=== PATIENT | male | born 1970 | race Caucasian/White ===

== ENCOUNTER 2021-04-15 20:21 | Emergency (ER) | payer BC, MEDICAID, OTHER ==
[2021-04-15] MEDS ORDERED: Sodium Chloride 0.9% 10 ML Syringe ONE (20:30)
[2021-04-15] MEDS ORDERED: fentaNYL 50 MCG/ML SDV ONE ×2 (20:30)
[2021-04-15] MEDS: LORazepam 2 MG/ML SDV IVPUSH ONE ×2 (20:33→20:41)
[2021-04-15] MEDS: fentaNYL 100 MCG/2 ML SDV IVPUSH ONE (20:36)
[2021-04-15 21:05] LABS: O2 DELIVERY DEVICE ROOM AIR
[2021-04-15 21:06] LABS: BASE EXCESS VENOUS -3 mmol/L ((-2)-3); BICARBONATE,VENOUS 22 mmol/L (23-28); O2 SATURATION VENOUS 63 %; PCO2 VENOUS 37 mmHG (41-51); PH,VENOUS 7.38 (7.31-7.41); PO2 VENOUS 33 mmHG
[2021-04-15 21:28] LABS: CHLORIDE,CL 107 mmol/L (98-107); SODIUM,NA 143 mmol/L (136-145)
[2021-04-15 21:30] LABS: ACETAMINOPHEN < 10.0 ug/mL (10.0-30.0)
[2021-04-15] MEDS: Lactated Ringers 1,000 ML IV ONE (21:30)
[2021-04-15] MEDS: Etomidate 2 MG/ML 10 ML SDV IVPUSH ONE (21:40)
[2021-04-15] MEDS: Succinylcholine 200 MG/10 ML MDV IV STA (21:42)
[2021-04-15] MEDS: Propofol 200 MG/20 ML SDV IVPUSH ONE ×3 (21:46→22:27)
[2021-04-15] MEDS: Lactated Ringers 1,000 ML IV SCH (22:31)
[2021-04-15 22:50] LABS: PCO2 ARTERIAL,POC 40 mmHg (35-48)
--- NOTE | 2021-04-15 22:52 | EDM.PDOC ---
ED HPI GENERAL MEDICAL PROBLEM - General Chief Complaint: General Stated Complaint: unresponsive Time Seen by Provider: 04/15/21 20:21 Source of Information: Reports: EMS, Family History Limitations: Reports: Altered Mental Status - History of Present Illness INITIAL COMMENTS - FREE TEXT/NARRATIVE: Patient comes emergency department today by ambulance from his home with concern s of an unresponsive episode. HPI is primarily obtained from the family as well as EMS. 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 He had fallen a couple of days ago in his boat and he sustained multiple bruises to his lower extremities as well as his abdomen and his right shoulder. He was evaluated at the [facility] and found no fractures or other pathology. He was seen at [facility] yesterday for routine follow-up and radiation to his brain for his metastatic melanoma. At approximately 6:00 this evening patient was at home with his mother and he stated that he was not feeling well and he started to get little shaky and he did not want anyone to be with him. His mother left. She tried to call him about half an hour later he did not answer. She had a family member go over to the house and check on him and he was found unresponsive. His family relates that over the past couple of days he has made some statements that he does not want to do treatment anymore and that he just wants to . He has never made any suicidal statements to them. Upon EMS arrival the patient was obtunded snoring respirations. An oral pharyngeal airway was placed. They were unable to obtain an IV. He was given intranasal Narcan prior to arrival in the emergency department. Rest of the HPI is unobtainable. Due to the patient's unresponsive state upon arrival. - Related Data Allergies Allergy/AdvReac Type Severity Reaction Status Date / Time Penicillins Allergy Rash Verified 04/15/21 20:29 Home Meds: Home Meds Omeprazole 20 mg PO DAILY 01/15/15 [History] Carboxymethylcellulose Sodium [Refresh Tears] 1 drop EYEBOTH Q4H PRN 11/13/20 [History] Diphenoxylate HCl/Atropine [Diphenoxylate-Atrop 2.5-0.025] 2 each PO QID 8 Days #30 tablet 11/13/20 [Rx] Ondansetron [Zofran ODT] 4 mg PO Q6H PRN 11/13/20 [History] Prednisolone Acetate/Pf [Prednisolone Acet 1% Eye Drop] 1 drop EYEBOTH QID 11/13/20 [History] Propylene Glycol/Peg 400 [Systane Ultra 0.4-0.3% Eye Drp] 1 drop EYEBOTH Q4H PRN 11/13/20 [History] Sertraline [Zoloft] 100 mg PO DAILY 11/13/20 [History] Past Medical History - Past Health History Medical/Surgical History: Denies Medical/Surgical History HEENT History: Reports: Other (See Below) (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) Cardiovascular History: Reports: None Respiratory History: Reports: None, Other (See Below) Gastrointestinal History: Reports: Irritable Bowel Syndrome, Other (See Below) (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 2. NODE BIOPSY (05/22/2018). 3. MASS EXCISION (09/10/2019). 4. SHOULDER SURGERY. 5. US BIOPSY AXILLARY RT (08/13/2019) Social & Family History - Family History Family Medical History: No Pertinent Family History ED ROS GENERAL - Review of Systems Review Of Systems: Unable To Obtain Reason Not Obtained: Unresponsive ED EXAM, GENERAL - Physical Exam Exam: See Below Free Text/Narrative:: Upon initial exam the patient is unresponsive. He has regular respirations with the oral pharyngeal airway in place. He is in no distress. He has no spontaneous movements. He does have regular respirations. Exam Limited By: Altered Mental Status General Appearance: Obtunded Eye Exam: Bilateral Eye: Normal Inspection, PERRL Ears: Normal External Exam Nose: Normal Inspection Throat/Mouth: Normal Inspection Head: Atraumatic, Normocephalic Neck: Normal Inspection, Other (There are multiple small masses noted on palpation that or not lymph nodes in the neck.) Respiratory/Chest: No Respiratory Distress, Lungs Clear, Normal Breath Sounds, No Accessory Muscle Use Cardiovascular: Normal Peripheral Pulses, Regular Rate, Rhythm Peripheral Pulses: 0: Dorsalis Pedis (R), 2+: Radial (L), Radial (R), Posterior Tibial (L), Posterior Tibial (R), Dorsalis Pedis (L) GI/Abdominal: Normal Bowel Sounds, Soft, Non-Tender, Other (There is multiple sites of bruising all over the abdomen. Abdomen is soft not distended.) (Male) Exam: Deferred Rectal (Males) Exam: Deferred Back Exam: Normal Inspection Extremities: Normal Capillary Refill. No: Normal Inspection (There is no overt bony deformity to any of his upper or lower extremities. He has quite extensive bruising on the anterior aspect of bilateral shins. CMS intact appropriately.) Neurological: Unresponsive Skin Exam: Warm, Dry, Intact, Normal Color ED GENERAL MEDICAL PROCEDURES - Endotracheal Intubation Time of Intubation: 21:35 ET Intubation Indication: Airway Protection Preparation: Suction, Balloon Tested, BVM Set Up, Difficult Airway Equip Pre-Oxygenation: 100% FiO2 Anesthesia Meds: Etomidate, Fentanyl, Succinylcholine Placement: Orotracheal, Cuffed, Uncomplicated Placement Cords Visualized: Yes, Grade 1 ETT Size In mm: 8.0 Number of Attempts: 1 Confirmed By: CO2 Indicator, Bilateral Breath Sounds, Chest Xray (Initially at the sanchez at 27 cm, pulled back 2 cm. ) Tube Secured By: By Provider Endotracheal Intubation Comment: Intubated easily with direct visualization of the Et tube through the cords. No epigastric sounds. Lung sounds bilaterally. Connecteced to auto vent. Course - Vital Signs Last Recorded V/S: Last Vital Signs Temp Pulse 95 04/15/21 20:25 Resp 16 04/15/21 20:25 BP 112/69 04/15/21 20:25 Pulse Ox 98 04/15/21 20:25 - Orders/Labs/Meds Orders: Active Orders 24 hr Category Date Time Status EKG Documentation Completion [RC] ASDIRECTED Care 04/15/21 20:49 Active Peripheral IV Care [RC] . DIRECTED Care 04/15/21 20:49 Active Chest 1V Frontal [CR] Stat Exams 04/15/21 22:06 Taken Head wo Cont [CT] Stat Exams 04/15/21 20:48 Taken SALICYLATE [REF] Stat Lab 04/15/21 21:00 Received Sodium Chloride 0.9% [Saline Flush] Med 04/15/21 20:49 Active 10 ml FLUSH ASDIRECTED PRN Peripheral IV Insertion Adult [OM.PC] Stat Oth 04/15/21 20:48 Ordered Medication Orders Sodium Chloride (Sodium Chloride 0.9% 10 Ml Syringe) 10 ml FLUSH ASDIRECTED PRN PRN Reason: Keep Vein Open Labs: Laboratory Tests 04/15/21 04/15/21 04/15/21 Range/Units 21:00 21:00 21:00 WBC 21.7 H (4.0-10.2) K/uL RBC 4.39 (4.33-5.41) M/uL Hgb 14.0 (13.1-16.8) g/dL Hct 41.7 (39.0-49.0) % MCV 95.0 (84.0-98.0) fL MCH 31.9 (28.2-33.3) pg MCHC 33.6 (31.7-36.0) g/dL RDW 12.8 (11.2-14.1) % Plt Count 217 (150-350) K/uL Neut % (Auto) 94.0 H (45.0-80.0) % Lymph % (Auto) 2.3 L (10.0-50.0) % Harvey % (Auto) 3.6 (2.0-14.0) % Eos % (Auto) 0.0 (0.0-5.0) % Baso % (Auto) 0.1 (0.0-2.0) % Neut # (Auto) 20.36 H (1.40-7.00) K/uL Lymph # (Auto) 0.50 (0.50-3.50) K/uL Harvey # (Auto) 0.78 (0.00-1.00) K/uL Eos # (Auto) 0.00 (0.00-0.50) K/uL Baso # (Auto) 0.02 (0.00-0.20) K/uL POC ABG pH (7.35-7.45) pH POC ABG pCO2 (35-48) mmHg POC ABG pO2 (83-108) mmHg POC ABG HCO3 (22-26) mmol/L POC ABG Total CO2 (23-27) mmol/L POC ABG O2 Sat (95-98) % POC ABG Base Excess (-2-3) mmol/L VBG pH 7.38 (7.31-7.41) VBG pCO2 37 L (41-51) mmHG VBG pO2 33 mmHG VBG HCO3 22 L (23-28) mmol/L VBG Total CO2 23 mmol/L VBG O2 Saturation 63 % VBG Base Excess -3 L ((-2)-3) mmol/L O2 Delivery Device Room air Oxygen Flow Rate Sodium 143 (136-145) mmol/L Potassium 4.4 (3.5-5.1) mmol/L Chloride 107 (98-107) mmol/L Carbon Dioxide 21.3 (21.0-32.0) mmol/L BUN 37 H (7-18) mg/dL Creatinine 1.43 H (0.51-1.17) mg/dL Est Cr Clr Drug Dosing TNP Estimated GFR (MDRD) 53 mL/min Glucose 164 H (70-99) mg/dL Calcium 8.5 (8.5-10.1) mg/dL Magnesium 2.7 H (1.8-2.4) mg/dL Total Bilirubin 0.4 (0.2-1.0) mg/dL AST 18 (15-37) U/L ALT 47 (12-78) U/L Alkaline Phosphatase 61 (46-116) IU/L Ammonia (11-32) umol/L C-Reactive Protein < 0.2 (<=0.9) mg/dL Total Protein 5.8 L (6.4-8.2) g/dL Albumin 3.1 L (3.4-5.0) g/dL Specimen Type Urine Color Urine Appearance Urine pH (5.0-9.0) Ur Specific [place] (1.005-1.030) Urine Protein (NEGATIVE) mg/dL Urine Glucose (UA) (NEGATIVE) mg/dL Urine Ketones (NEGATIVE) mg/dL Urine Occult Blood (NEGATIVE) Urine Nitrite (NEGATIVE) Urine Bilirubin (NEGATIVE) Urine Urobilinogen (0.2-1.0) E.U./dL Ur Leukocyte Esterase (NEGATIVE) Urine RBC /HPF Urine WBC /HPF Ur Epithelial Cells /LPF Urine Bacteria (NONE TO FEW) /HPF Urine Mucus (NEGATIVE) /LPF Urine Opiates Screen (NEGATIVE) Ur Buprenorphine Scrn (NEGATIVE) Ur Oxycodone Screen (NEGATIVE) Ur EDDP (Meth Metab) (NEGATIVE) Acetaminophen < 10.0 L (10.0-30.0) ug/mL Ur Barbiturates Screen (NEGATIVE) Ur Tricyclics Screen (NEGATIVE) Ur Amphetamine Screen (NEGATIVE) U Methamphetamines Scrn (NEGATIVE) Urine MDMA Screen (NEGATIVE) U Benzodiazepines Scrn (NEGATIVE) U Cocaine Metab Screen (NEGATIVE) U Marijuana (THC) Screen (NEGATIVE) Ethyl Alcohol 0.001 (0.000-0.080) g/dL 04/15/21 04/15/21 04/15/21 Range/Units 21:00 22:40 22:50 WBC (4.0-10.2) K/uL RBC (4.33-5.41) M/uL Hgb (13.1-16.8) g/dL Hct (39.0-49.0) % MCV (84.0-98.0) fL MCH (28.2-33.3) pg MCHC (31.7-36.0) g/dL RDW (11.2-14.1) % Plt Count (150-350) K/uL Neut % (Auto) (45.0-80.0) % Lymph % (Auto) (10.0-50.0) % Harvey % (Auto) (2.0-14.0) % Eos % (Auto) (0.0-5.0) % Baso % (Auto) (0.0-2.0) % Neut # (Auto) (1.40-7.00) K/uL Lymph # (Auto) (0.50-3.50) K/uL Harvey # (Auto) (0.00-1.00) K/uL Eos # (Auto) (0.00-0.50) K/uL Baso # (Auto) (0.00-0.20) K/uL POC ABG pH 7.5 H (7.35-7.45) pH POC ABG pCO2 40 (35-48) mmHg POC ABG pO2 414 H (83-108) mmHg POC ABG HCO3 28.1 H (22-26) mmol/L POC ABG Total CO2 28.4 H (23-27) mmol/L POC ABG O2 Sat 100.0 H (95-98) % POC ABG Base Excess 4 H (-2-3) mmol/L VBG pH (7.31-7.41) VBG pCO2 (41-51) mmHG VBG pO2 mmHG VBG HCO3 (23-28) mmol/L VBG Total CO2 mmol/L VBG O2 Saturation % VBG Base Excess ((-2)-3) mmol/L O2 Delivery Device Vent mask Oxygen Flow Rate 15 Sodium (136-145) mmol/L Potassium (3.5-5.1) mmol/L Chloride (98-107) mmol/L Carbon Dioxide (21.0-32.0) mmol/L BUN (7-18) mg/dL Creatinine (0.51-1.17) mg/dL Est Cr Clr Drug Dosing Estimated GFR (MDRD) mL/min Glucose (70-99) mg/dL Calcium (8.5-10.1) mg/dL Magnesium (1.8-2.4) mg/dL Total Bilirubin (0.2-1.0) mg/dL AST (15-37) U/L ALT (12-78) U/L Alkaline Phosphatase (46-116) IU/L Ammonia < 10 L (11-32) umol/L C-Reactive Protein (<=0.9) mg/dL Total Protein (6.4-8.2) g/dL Albumin (3.4-5.0) g/dL Specimen Type Urine Color Urine Appearance Urine pH (5.0-9.0) Ur Specific [place] (1.005-1.030) Urine Protein (NEGATIVE) mg/dL Urine Glucose (UA) (NEGATIVE) mg/dL Urine Ketones (NEGATIVE) mg/dL Urine Occult Blood (NEGATIVE) Urine Nitrite (NEGATIVE) Urine Bilirubin (NEGATIVE) Urine Urobilinogen (0.2-1.0) E.U./dL Ur Leukocyte Esterase (NEGATIVE) Urine RBC /HPF Urine WBC /HPF Ur Epithelial Cells /LPF Urine Bacteria (NONE TO FEW) /HPF Urine Mucus (NEGATIVE) /LPF Urine Opiates Screen Positive H (NEGATIVE) Ur Buprenorphine Scrn Negative (NEGATIVE) Ur Oxycodone Screen Positive H (NEGATIVE) Ur EDDP (Meth Metab) Negative (NEGATIVE) Acetaminophen (10.0-30.0) ug/mL Ur Barbiturates Screen Negative (NEGATIVE) Ur Tricyclics Screen Negative (NEGATIVE) Ur Amphetamine Screen Negative (NEGATIVE) U Methamphetamines Scrn Negative (NEGATIVE) Urine MDMA Screen Negative (NEGATIVE) U Benzodiazepines Scrn Positive H (NEGATIVE) U Cocaine Metab Screen Negative (NEGATIVE) U Marijuana (THC) Screen Negative (NEGATIVE) Ethyl Alcohol (0.000-0.080) g/dL 04/15/21 Range/Units 23:00 WBC (4.0-10.2) K/uL RBC (4.33-5.41) M/uL Hgb (13.1-16.8) g/dL Hct (39.0-49.0) % MCV (84.0-98.0) fL MCH (28.2-33.3) pg MCHC (31.7-36.0) g/dL RDW (11.2-14.1) % Plt Count (150-350) K/uL Neut % (Auto) (45.0-80.0) % Lymph % (Auto) (10.0-50.0) % Harvey % (Auto) (2.0-14.0) % Eos % (Auto) (0.0-5.0) % Baso % (Auto) (0.0-2.0) % Neut # (Auto) (1.40-7.00) K/uL Lymph # (Auto) (0.50-3.50) K/uL Harvey # (Auto) (0.00-1.00) K/uL Eos # (Auto) (0.00-0.50) K/uL Baso # (Auto) (0.00-0.20) K/uL POC ABG pH (7.35-7.45) pH POC ABG pCO2 (35-48) mmHg POC ABG pO2 (83-108) mmHg POC ABG HCO3 (22-26) mmol/L POC ABG Total CO2 (23-27) mmol/L POC ABG O2 Sat (95-98) % POC ABG Base Excess (-2-3) mmol/L VBG pH (7.31-7.41) VBG pCO2 (41-51) mmHG VBG pO2 mmHG VBG HCO3 (23-28) mmol/L VBG Total CO2 mmol/L VBG O2 Saturation % VBG Base Excess ((-2)-3) mmol/L O2 Delivery Device Oxygen Flow Rate Sodium (136-145) mmol/L Potassium (3.5-5.1) mmol/L Chloride (98-107) mmol/L Carbon Dioxide (21.0-32.0) mmol/L BUN (7-18) mg/dL Creatinine (0.51-1.17) mg/dL Est Cr Clr Drug Dosing Estimated GFR (MDRD) mL/min Glucose (70-99) mg/dL Calcium (8.5-10.1) mg/dL Magnesium (1.8-2.4) mg/dL Total Bilirubin (0.2-1.0) mg/dL AST (15-37) U/L ALT (12-78) U/L Alkaline Phosphatase (46-116) IU/L Ammonia (11-32) umol/L C-Reactive Protein (<=0.9) mg/dL Total Protein (6.4-8.2) g/dL Albumin (3.4-5.0) g/dL Specimen Type Urinvoid Urine Color Yellow Urine Appearance Clear Urine pH 5.5 (5.0-9.0) Ur Specific [place] >= 1.030 (1.005-1.030) Urine Protein 100 H (NEGATIVE) mg/dL Urine Glucose (UA) Negative (NEGATIVE) mg/dL Urine Ketones Negative (NEGATIVE) mg/dL Urine Occult Blood Small H (NEGATIVE) Urine Nitrite Negative (NEGATIVE) Urine Bilirubin Negative (NEGATIVE) Urine Urobilinogen 0.2 (0.2-1.0) E.U./dL Ur Leukocyte Esterase Negative (NEGATIVE) Urine RBC 5-10 H /HPF Urine WBC 0-5 /HPF Ur Epithelial Cells Few /LPF Urine Bacteria Few (NONE TO FEW) /HPF Urine Mucus Few H (NEGATIVE) /LPF Urine Opiates Screen (NEGATIVE) Ur Buprenorphine Scrn (NEGATIVE) Ur Oxycodone Screen (NEGATIVE) Ur EDDP (Meth Metab) (NEGATIVE) Acetaminophen (10.0-30.0) ug/mL Ur Barbiturates Screen (NEGATIVE) Ur Tricyclics Screen (NEGATIVE) Ur Amphetamine Screen (NEGATIVE) U Methamphetamines Scrn (NEGATIVE) Urine MDMA Screen (NEGATIVE) U Benzodiazepines Scrn (NEGATIVE) U Cocaine Metab Screen (NEGATIVE) U Marijuana (THC) Screen (NEGATIVE) Ethyl Alcohol (0.000-0.080) g/dL Meds: Medications Generic Name Dose Route Start Last Admin Trade Name Freq PRN Reason Stop Dose Admin Sodium Chloride 10 ml 04/15/21 20:49 Sodium Chloride 0.9% 10 Ml Syringe FLUSH ASDIRECTED PRN Keep Vein Open Discontinued Medications Generic Name Dose Route Start Last Admin Trade Name Freq PRN Reason Stop Dose Admin Etomidate Confirm 04/15/21 21:14 Etomidate 2 Mg/Ml 10 Ml Sdv Administered 04/15/21 21:15 Dose 20 mg .ROUTE .STK-MED ONE Etomidate 20 mg 04/15/21 21:30 Etomidate 2 Mg/Ml 10 Ml Sdv IVPUSH 04/15/21 21:31 ONETIME ONE Fentanyl Confirm 04/15/21 20:35 Fentanyl 100 Mcg/2 Ml Sdv Administered 04/15/21 20:36 Dose 100 mcg .ROUTE .STK-MED ONE Fentanyl 100 mcg 04/15/21 20:50 Fentanyl 100 Mcg/2 Ml Sdv IVPUSH 04/15/21 20:51 ONETIME ONE Fentanyl 50 mcg 04/15/21 20:53 Fentanyl 50 Mcg/Ml Sdv IVPUSH 04/15/21 20:54 ONETIME ONE Fentanyl Confirm 04/15/21 20:54 Fentanyl 100 Mcg/2 Ml Sdv Administered 04/15/21 20:55 Dose 100 mcg .ROUTE .STK-MED ONE Fentanyl 50 mcg 04/15/21 22:07 Fentanyl 50 Mcg/Ml Sdv IVPUSH 04/15/21 22:08 ONETIME ONE Fentanyl 50 mcg 04/15/21 22:22 Fentanyl 50 Mcg/Ml Sdv IVPUSH 04/15/21 22:23 ONETIME ONE Lactated Ringer's 1,000 mls @ 1,000 mls/hr 04/15/21 20:53 Ringers, Lactated IV 04/15/21 21:52 .BOLUS ONE Levetiracetam 1,000 mg/ Sodium 110 mls @ 400 mls/hr 04/15/21 21:06 Chloride IV 04/15/21 21:22 NOW STA Lorazepam Confirm 04/15/21 20:33 Lorazepam 2 Mg/Ml Sdv Administered 04/15/21 20:34 Dose 2 mg .ROUTE .STK-MED ONE Lorazepam Confirm 04/15/21 20:41 Lorazepam 2 Mg/Ml Sdv Administered 04/15/21 20:42 Dose 2 mg .ROUTE .STK-MED ONE Lorazepam 2 mg 04/15/21 20:50 Lorazepam 2 Mg/Ml Sdv IVPUSH 04/15/21 20:51 ONETIME ONE Lorazepam 2 mg 04/15/21 20:50 Lorazepam 2 Mg/Ml Sdv IVPUSH 04/15/21 20:51 ONETIME ONE Propofol Confirm 04/15/21 21:35 Propofol 200 Mg/20 Ml Sdv Administered 04/15/21 21:36 Dose 200 mg .ROUTE .STK-MED ONE Propofol 100 mg 04/15/21 22:06 Propofol 200 Mg/20 Ml Sdv IVPUSH 04/15/21 22:07 ONETIME ONE Propofol Confirm 04/15/21 22:12 Propofol 200 Mg/20 Ml Sdv Administered 04/15/21 22:13 Dose 200 mg .ROUTE .STK-MED ONE Propofol Confirm 04/15/21 22:13 Propofol 200 Mg/20 Ml Sdv Administered 04/15/21 22:14 Dose 200 mg .ROUTE .STK-MED ONE Propofol 200 mg 04/15/21 22:21 Propofol 200 Mg/20 Ml Sdv IVPUSH 04/15/21 22:22 ONETIME ONE Rocuronium Mora Confirm 04/15/21 20:28 Rocuronium 100 Mg/10 Ml Mdv Administered 04/15/21 20:29 Dose 100 mg .ROUTE .STK-MED ONE Succinylcholine Chloride Confirm 04/15/21 20:28 Succinylcholine 200 Mg/10 Ml Mdv Administered 04/15/21 20:29 Dose 200 mg .ROUTE .STK-MED ONE Succinylcholine Chloride 100 mg 04/15/21 21:30 Succinylcholine 200 Mg/10 Ml Mdv IV 04/15/21 21:31 NOW STA - Re-Assessments/Exams Free Text/Narrative Re-Assessment/Exam: 04/15/21 Initially upon arrival the patient's GCS is 3. He did not have an IV in place. Shortly after his arrival during attempting an IV the patient started to become more responsive. He had purposeful movements and actually pulled out his oropharyngeal airway. Shortly thereafter he became quite agitated combative and confused. He would not follow commands. He was moving all extremities strong equal spontaneously. His speech was clear but it was confusing in the words that he was using as inappropriate words. He was agitated and combative biting and swinging. An IV was established. The patient was given lorazepam and fentanyl for acute agitation questionably from opioid withdrawal due to the Narcan administration. This could also be other pathology as well with his history. His EKG shows a normal sinus rhythm without any ST elevation or depression when reviewed extemporaneously by myself. After multiple doses of fentanyl and Ativan the patient was calm appropriate. He was maintaining his airway per himself. There was no accessory muscle usage. There was no sonorous respirations. We proceeded to the CT scanner which initially on my review is concerning for a very deep frontal lobe acute either bleed or some type of mass lesion with some swelling acutely around this frontal lobe lesion. There is no midline shift. Radiological review to follow. Once we returned back to the emergency department with the findings on his CT scan and his obtundation upon arrival and my concerns for worsening neurological status the decision for RSI intubation was made. Please see the procedure note. [facility] was activated from [place]. Pt was given fentanyl and propofol for continued sedation and pain management. Unable to place OG so an NG was placed. Garza was placed. Vitals stable. Labs rather unremarkable other than a WBC of 21.7 with a normal CRP. This is most likely due to stress response with a normal differential. Initial CT report per radiologist is concerning for a new frontal lesion with swelling no sign of bleeding. No midline shift verbal report initially. Typed report pending. The patient remained vitally stable and tolerated the propofol gtt at 40mcg/kg/min and prn fentanyl. He was initially given a liter of LR wide open as well as a gram of Keppra IVPB with the concerns of possible seizure and the findings on the CT scan. I called and spoke with Dr. Jacobsen at [facility] in [place]. HPI ER COURSE findings and concerns were relayed to him. His questions were answered and he accepted this patient in transfer at this time to [facility] in [place]. I discussed the plan of care and concerns with the patients mother and family. Their questions were answered and they were comfortable with this plan. Pt did after initial RSI have appropriate response at times reaching for the tube moving his extremities his pupils were 3 mm sluggish bilaterally. [facility] arrived and care was transferred to them. Departure - Departure Time of Disposition: 22:00 Disposition: DC/Tfer to Acute Hospital 02 Clinical Impression: Unresponsive, Metastatic melanoma to head and neck - Discharge Information Forms: ED Department Discharge, Interfacility Transfer EMTALA Critical Care Note - Critical Care Note Total Time (mins): 120 Comments: 120 minutes of direct critical care time in direct patient care management interventions not include other separately billable procedures. Reviewing of the chest x-rays CT scans and consultation with receiving providers and discussi ng plan of care with the patients family. Sepsis Event Note (ED) - Evaluation Sepsis Screening Result: No Definite Risk - Focused Exam Vital Signs: Vital Signs Pulse Resp BP Pulse Ox 04/15/21 20:25 95 16 112/69 98 - My Orders Last 24 Hours: My Active Orders 04/15/21 20:48 Head wo Cont [CT] Stat Peripheral IV Insertion Adult [OM.PC] Stat 04/15/21 20:49 EKG Documentation Completion [RC] ASDIRECTED Peripheral IV Care [RC] . DIRECTED Sodium Chloride 0.9% [Saline Flush] 10 ml FLUSH ASDIRECTED PRN 04/15/21 21:00 SALICYLATE [REF] Stat 04/15/21 22:06 Chest 1V Frontal [CR] Stat - Assessment/Plan Last 24 Hours: My Active Orders 04/15/21 20:48 Head wo Cont [CT] Stat Peripheral IV Insertion Adult [OM.PC] Stat 04/15/21 20:49 EKG Documentation Completion [RC] ASDIRECTED Peripheral IV Care [RC] . DIRECTED Sodium Chloride 0.9% [Saline Flush] 10 ml FLUSH ASDIRECTED PRN 04/15/21 21:00 SALICYLATE [REF] Stat 04/15/21 22:06 Chest 1V Frontal [CR] Stat
[2021-04-15 23:10] LABS: BARBITURATE SCREEN,URINE NEGATIVE (NEGATIVE); BENZODIAZEPINES SCREEN,URINE POSITIVE (NEGATIVE); EDDP,URINE SCREEN NEGATIVE (NEGATIVE); TCA SCREEN,URINE NEGATIVE (NEGATIVE); THC SCREEN,URINE 50 NG/ML NEGATIVE (NEGATIVE)
[2021-04-16] MEDS: Rocuronium 100 MG/10 ML MDV ONE (02:28)
[2021-04-16 02:38] VITALS: BP 109/71; PULSE 55
[2021-04-16] MEDS: Etomidate 2 MG/ML 10 ML SDV ONE (03:16)
[2021-04-16] MEDS: LORazepam 2 MG/ML SDV ONE ×2 (03:18)
[2021-04-16] MEDS: levETIRAcetam 1,000 MG in Sodium Chloride 0.9% 100 ML IV STA (03:19)
[2021-04-16] MEDS: Succinylcholine 200 MG/10 ML MDV ONE (03:19)
[2021-04-16] MEDS: fentaNYL 50 MCG/ML SDV IVPUSH ONE ×3 (03:24→03:28)
[2021-04-16] MEDS: fentaNYL 100 MCG/2 ML SDV ONE ×2 (03:26→03:28)
[2021-04-16] MEDS: Sodium Chloride 0.9% 10 ML Syringe FLUSH PRN (03:28)
[2021-04-16] MEDS: Propofol 200 MG/20 ML SDV ONE ×3 (03:42)
== END 2021-04-15 23:26 ==
LOC: LL.ED 20:21
DX: R40.4 Transient alteration of awareness (principal); C79.2 Secondary malignant neoplasm of skin; Z88.0 Allergy status to penicillin; Z79.899 Other long term (current) drug therapy
CPT/HCPCS: 31500; 36415; 51702; 70450; 71045; 80053; 80143; 80179; 80305-QW; 80307; 81001; 82140; 82803; 83735; 85025; 86140; 93005; 96365; 96375; 96376; 99291; 99291-25; 99292; J0330; J1953; J2060; J2704; J3010; J3490; J7120